=== PATIENT | female | born 1970 | race Caucasian/White ===

== ENCOUNTER 2018-10-12 12:29 | Emergency (ER) | payer OTHER, SELFPAY ==
[~2018-10-12 12:29] MED LIST: Iopamidol 300 61% 100 ML VIAL FS ONE
[2018-10-12 12:56] LABS: Clarity Clear (Clear); Glucose, Urine (Dipstick) Negative (Negative); Leukocyte Negative (Negative); Nitrite Negative (Negative); Protein, Urine (Dipstick) 30 mg/dL (Neg-Trace); Specific Gravity, Urine 1.015 (1.005-1.030)
[2018-10-12 12:57] LABS: Bacteria/HPF Rare-Few HPF (None Seen); Bilirubin Small (Negative); Blood, Urine Negative (Negative); RBC/HPF 0-3 HPF (0-3); Squamous Epithelial 0-3 HPF (0-3); Urobilinogen 0.2 mg/dL (0.2-1.0); WBC/HPF 0-3 HPF (0-3)
[2018-10-12 13:35] LABS: #Basophils 0.1 thou/uL (0.0-0.2); #Eosinphils 0.1 thou/uL (0.0-0.7); #Monocytes 0.3 thou/uL (0.11-0.59); #Neutrophils 3.4 thou/uL (1.40-6.50); %Basophils 1.2 % (0.0-1.0); %Eosinophils 2.5 % (0.0-10.0); %Lymphocytes 33.3 % (21.0-51.0); %Monocytes 5.1 % (0.0-10.0); Hemoglobin 12.6 g/dL (12.0-16.0); Mean Corpuscular HGB CONC 30.9 g/dL (32.0-36.0); Mean Corpuscular Hemoglobin 29.7 pg (27.0-31.0); Mean Corpuscular Volume 96.3 fL (78.0-98.0); Mean Platelet Volume 7.5 fL (7.4-10.4); Platelet Count 259 thou/uL (130-400); RBC Distribution Width 11.9 % (11.5-14.5); Red Blood Cell (RBC) Count 4.23 mill/uL (4.20-5.40); White Blood Cell (WBC) Count 5.8 thou/uL (4.8-10.8)
[2018-10-12 13:50] LABS: ALT (SGPT) 27 U/L (8-55); AST (SGOT) 23 U/L (5-34); Albumin 4.7 g/dL (3.5-5.0); Alkaline Phosphatase 91 U/L (40-150); Anion Gap 17 mmol/L (10-20); BUN (Urea Nitrogen) 15 mg/dL (7.0-18.7); Bilirubin, Total 0.2 mg/dL (0.2-1.2); Calc. Creatinine Clearance 0 mL/min (70-130); Calcium 10.6 mg/dL (7.8-10.44); Carbon Dioxide 32 mmol/L (22-29); Chloride 100 mmol/L (98-107); Estimated GFR-MDRD 76; Glucose 100 mg/dL (70-105); Protein, Total 7.7 g/dL (6.0-8.3); Sodium 145 mmol/L (136-145)
--- NOTE | 2018-10-12 14:39 | CT ---
CT abdomen with contrast CT pelvis with contrast: DATE: 10/12/2018 HISTORY: 48-year-old female with left lower quadrant abdominal pain. Recent UTI. COMPARISON: None available TECHNIQUE: IV injection of iodinated contrast media:Administered Oral contrast media:Not administered FINDINGS: There is a lap band around the cardia of the stomach, with catheter, plus injection port anterior to the left anterior abdominal wall in the subcutaneous fat. Moderate amount of stool throughout the colon. No convincing evidence of colonic diverticulitis. Redundant transverse colon. No small bowel d ilation. Tiny calculus at lower pole of right kidney. No evidence of pyelonephritis. No hydronephrosis. Normal left kidney, abdominal aorta, adrenals, spleen, pancreas, and liver. Decompres sed urinary bladder. Appendix is normal. No ascites or pneumoperitoneum. Lung bases are clear. No destructive osseous lesion. IMPRESSION: 1) mild nephrolithiasis consisting of a single tiny right renal calculus. 2) no acute findings 3) laparoscopic gastric band
== END 2018-10-12 14:53 | disposition home or self-care (01) ==
LOC: BURERS 12:29
DX: R10.32 Left lower quadrant pain (principal)
CPT/HCPCS: 36415; 74177; 80053; 81003; 81015; 85025; Q9967

== ENCOUNTER 2018-11-12 20:16 | Emergency (ER) | payer SELFPAY ==
--- NOTE | 2018-11-12 22:29 | RAD ---
RIGHT ANKLE THREE VIEWS: 11/12/2018 FINDINGS: A nondisplaced fracture of the lateral malleolus is present. The distal tibia appears intact. The a rticular surfaces appear normal. IMPRESSION: Undisplaced fracture of the lateral malleolus. CODE T POS: HOME
== END 2018-11-12 21:00 | disposition home or self-care (01) ==
LOC: BURERS 20:16
DX: S82.831A Other fracture of upper and lower end of right fibula, initial encounter for closed fracture (principal); F41.9 Anxiety disorder, unspecified; F32.9 Major depressive disorder, single episode, unspecified; F90.9 Attention-deficit hyperactivity disorder, unspecified type; E03.9 Hypothyroidism, unspecified; Z79.899 Other long term (current) drug therapy; Z79.891 Long term (current) use of opiate analgesic; X50.1XXA Overexertion from prolonged static or awkward postures, initial encounter

== ENCOUNTER 2019-04-01 12:05 | Emergency (ER) | payer SELFPAY ==
[2019-04-01] MEDS ORDERED: Ketorolac Tromethamine 30 MG/ML VIAL ONE (12:44)
[2019-04-01 12:48] LABS: #Basophils 0.1 thou/uL (0.0-0.2); #Monocytes 0.9 thou/uL (0.11-0.59); #Neutrophils 9.6 thou/uL (1.40-6.50); %Basophils 0.6 % (0.0-1.0); %Eosinophils 0.3 % (0.0-10.0); %Lymphocytes 8.2 % (21.0-51.0); %Monocytes 7.7 % (0.0-10.0); %Neutrophils 83.2 % (42.0-75.0); Hemoglobin 11.7 g/dL (12.0-16.0); Mean Corpuscular HGB CONC 32.6 g/dL (32.0-36.0); Mean Corpuscular Volume 92.1 fL (78.0-98.0); Mean Platelet Volume 8.5 fL (7.4-10.4); Platelet Count 260 thou/uL (130-400); RBC Distribution Width 11.8 % (11.5-14.5); Red Blood Cell (RBC) Count 3.88 mill/uL (4.20-5.40); White Blood Cell (WBC) Count 11.5 thou/uL (4.8-10.8)
[2019-04-01 12:57] LABS: BHCG - Serum POSITIVE (NEGATIVE); Pregs Control Background? CLEAR/WHITE (CLR/WHITE); Pregs Control Bar Appear? YES (CONTROL BAR)
[2019-04-01 13:04] LABS: ALT (SGPT) 73 U/L (8-55); AST (SGOT) 98 U/L (5-34); Albumin 3.7 g/dL (3.5-5.0); Alkaline Phosphatase 169 U/L (40-110); Anion Gap 15 mmol/L (10-20); BUN (Urea Nitrogen) 9 mg/dL (9.8-20.1); Bilirubin, Total 0.3 mg/dL (0.2-1.2); Calc. Creatinine Clearance 0 mL/min (70-130); Calcium 9.2 mg/dL (7.8-10.44); Carbon Dioxide 27 mmol/L (22-29); Chloride 97 mmol/L (98-107); Estimated GFR-MDRD 81; Globulin 3.5 g/dL (2.4-3.5); Glucose 102 mg/dL (70-105); Lipase 6 U/L (8-78); Potassium 3.9 mmol/L (3.5-5.1); Protein, Total 7.2 g/dL (6.0-8.3); Sodium 135 mmol/L (136-145)
== END 2019-04-01 13:54 | disposition home or self-care (01) ==
LOC: BURERS 12:05
DX: K29.71 Gastritis, unspecified, with bleeding (principal); J11.1 Influenza due to unidentified influenza virus with other respiratory manifestations; F41.9 Anxiety disorder, unspecified; F32.9 Major depressive disorder, single episode, unspecified; F90.9 Attention-deficit hyperactivity disorder, unspecified type; E03.9 Hypothyroidism, unspecified; Z79.891 Long term (current) use of opiate analgesic; Z79.899 Other long term (current) drug therapy
CPT/HCPCS: 80053; 83690; 84702; 84703; 85025; J1885

== ENCOUNTER 2019-08-06 22:03 | Emergency (ER) | payer SELFPAY ==
[2019-08-06] MEDS ORDERED: Adacel (T-DAP) 0.5 ML SYRINGE ONE (22:28)
[2019-08-06] MEDS ORDERED: Ciprofloxacin 500 MG TAB ONE (22:28)
--- NOTE | 2019-08-06 22:58 | RAD ---
LEFT FOOT THREE VIEWS: 08/06/19 A marker is placed at the site of interest in the distal forefoot, plantar surface. No opaque foreign body was visible. The bones currently appear normal. IMPRESSION: No significant findings. POS: HOME
== END 2019-08-06 22:50 | disposition home or self-care (01) ==
LOC: BURERS 22:03
DX: S91.332A Puncture wound without foreign body, left foot, initial encounter (principal); E03.9 Hypothyroidism, unspecified; F41.9 Anxiety disorder, unspecified; F32.9 Major depressive disorder, single episode, unspecified; F90.9 Attention-deficit hyperactivity disorder, unspecified type; M79.7 Fibromyalgia; Z79.899 Other long term (current) drug therapy; Z23 Encounter for immunization; W45.0XXA Nail entering through skin, initial encounter
CPT/HCPCS: 90715

== ENCOUNTER 2021-01-08 04:34 | Emergency (ER) | payer SELFPAY ==
[2021-01-08] MEDS ORDERED: cefTRIAXone\\ROCEPHIN 1 GM VIAL ONE (04:50)
[2021-01-08] MEDS ORDERED: Lidocaine 1% PF 5 ML VIAL ONE (04:51)
== END 2021-01-08 05:15 | disposition home or self-care (01) ==
LOC: BURERS 04:34
DX: K04.7 Periapical abscess without sinus (principal); E03.9 Hypothyroidism, unspecified; Z79.899 Other long term (current) drug therapy
CPT/HCPCS: 96372; 99282; J0696

== ENCOUNTER 2021-10-05 19:17 | Emergency (ER) | payer SELFPAY ==
[2021-10-05] MEDS ORDERED: Ketorolac Tromethamine 60 MG/2 ML VIAL ONE (19:39)
[2021-10-05 19:57] LABS: Bilirubin Negative (Negative); Blood, Urine Moderate (Negative); Clarity Cloudy (Clear); Glucose, Urine (Dipstick) Negative (Negative); Ketone, Urine Negative (Negative); Leukocyte Large (Negative); Nitrite Positive (Negative); Protein, Urine (Dipstick) > or equal to 300 mg/dL (Neg-Trace); pH, Urine 5.5 (5.0-9.0)
[2021-10-05 20:03] LABS: Bacteria/HPF 4+ HPF (None Seen); Mucous/LPF 1+ LPF (<2+); Squamous Epithelial 0-3 HPF (0-3); WBC/HPF Greater Than 50 HPF (0-3)
[2021-10-05] MEDS ORDERED: Sulfameth/Trimethoprim DS 800-160mg TAB ONE (20:20)
[2021-10-05] MEDS ORDERED: Acetaminophen 500 MG TAB ONE (20:25)
== END 2021-10-05 22:11 | disposition home or self-care (01) ==
LOC: BURERS 19:17
DX: N10 Acute pyelonephritis (principal); E03.9 Hypothyroidism, unspecified; Z79.890 Hormone replacement therapy; Z79.899 Other long term (current) drug therapy
CPT/HCPCS: 81003; 81015; 87077; 87086; 87186; 87804; 96372; 99283; J1885

== ENCOUNTER 2021-10-06 20:51 | Observation (INO) | payer SELFPAY ==
[2021-10-06 21:45] LABS: #Basophils 0.1 thou/uL (0.0-0.2); #Lymphocytes 0.6 thou/uL (1.20-3.40); #Monocytes 0.9 thou/uL (0.11-0.59); #Neutrophils 17.3 thou/uL (1.40-6.50); %Basophils 0.4 % (0.0-1.0); %Eosinophils 0.1 % (0.0-10.0); %Lymphocytes 3.3 % (21.0-51.0); %Monocytes 4.5 % (0.0-10.0); %Neutrophils 91.7 % (42.0-75.0); Hemoglobin 11.4 g/dL (12.0-16.0); Mean Corpuscular HGB CONC 34.4 g/dL (32.0-36.0); Mean Corpuscular Hemoglobin 31.2 pg (27.0-31.0); Mean Corpuscular Volume 90.8 fL (78.0-98.0); Platelet Count 235 thou/uL (130-400); RBC Distribution Width 11.8 % (11.5-14.5); Red Blood Cell (RBC) Count 3.64 mill/uL (4.20-5.40); White Blood Cell (WBC) Count 18.8 thou/uL (4.8-10.8)
[2021-10-06] MEDS ORDERED: Ondansetron PF 4 MG/2 ML Vial ONE (21:55)
[2021-10-06] MEDS ORDERED: Morphine 4 MG/ML VIAL ONE (21:55)
[2021-10-06] MEDS ORDERED: Acetaminophen 325 MG TAB ONE (21:55)
[2021-10-06] MEDS ORDERED: cefTRIAXone\\ROCEPHIN 2 GM VIAL ONE (21:56)
[2021-10-06] MEDS ORDERED: Sodium Chloride 0.9% 100 ML ONE (21:58)
[2021-10-06 22:00] LABS: ALT (SGPT) 44 U/L (8-55); AST (SGOT) 55 U/L (5-34); Albumin 3.9 g/dL (3.5-5.0); Alkaline Phosphatase 99 U/L (40-110); Anion Gap 14 mmol/L (10-20); BUN (Urea Nitrogen) 10 mg/dL (9.8-20.1); Bilirubin, Total 0.5 mg/dL (0.2-1.2); Calc. Creatinine Clearance 0 mL/min (70-130); Calcium 8.7 mg/dL (7.8-10.44); Carbon Dioxide 26 mmol/L (22-29); Chloride 101 mmol/L (98-107); Glucose 122 mg/dL (70-105); Potassium 3.7 mmol/L (3.5-5.1); Protein, Total 6.9 g/dL (6.0-8.3); Sodium 137 mmol/L (136-145)
[2021-10-06 23:54] VITALS: BMI 25.4
[2021-10-07 00:15] LABS: SARS-CoV-2 NAA Rapid Test Not Detected (NotDetected)
[2021-10-07] MEDS ORDERED: Morphine 4 MG/ML VIAL SLOW IVP PRN (01:18)
[2021-10-07] MEDS ORDERED: Ondansetron ODT 4 MG TAB SL PRN (01:30)
[2021-10-07] MEDS ORDERED: Acetaminophen 325 MG TAB PO PRN (01:30)
[2021-10-07] MEDS ORDERED: Ondansetron PF 4 MG/2 ML Vial IVP PRN (01:30)
[2021-10-07 02:54] LABS: Bilirubin Negative (Negative); Blood, Urine Trace (Negative); Clarity Clear (Clear); Glucose, Urine (Dipstick) Negative (Negative); Ketone, Urine Negative (Negative); Leukocyte Trace (Negative); Nitrite Negative (Negative); Protein, Urine (Dipstick) 100 mg/dL (Neg-Trace); Specific Gravity, Urine 1.025 (1.005-1.030); Urobilinogen 0.2 mg/dL (Less than 2); pH, Urine 5.5 (5.0-9.0)
[2021-10-07 02:59] LABS: Bacteria/HPF 1+ HPF (None Seen); Squamous Epithelial 0-3 HPF (0-3); WBC/HPF 0-3 HPF (0-3)
[2021-10-07 03:01] LABS: Urine Culture Reflex Yes Yes
[2021-10-07] MEDS ORDERED: HYDROcodone/Acetaminophen 10/325 mg Tablet PO PRN (06:16)
[2021-10-07] MEDS: Sodium Chloride 0.9% 1,000 ML IV SCH ×2 (08:02)
[2021-10-07] MEDS: Bupropion 150 MG SR TAB PO SCH (08:03)
[2021-10-07] MEDS: Levothyroxine Sodium 100 MCG TAB PO SCH (08:03)
[2021-10-07] MEDS: Ibuprofen 800 MG TAB PO PRN (10:58)
[2021-10-07] MEDS ORDERED: Ondansetron ODT 4 MG TAB PO PRN (15:12)
[2021-10-07] MEDS: cefTRIAXone\\ROCEPHIN 2 GM in Sodium Chloride 0.9% 100 ML IVPB SCH (22:32)
[2021-10-07] MEDS: HYDROcodone/Acetaminophen 10/325 mg Tablet PO PRN (22:38)
[2021-10-08] MEDS: Ibuprofen 800 MG TAB PO PRN ×2 (01:58→23:45)
[2021-10-08 05:17] LABS: Anion Gap 16 mmol/L (10-20); BUN (Urea Nitrogen) 9 mg/dL (9.8-20.1); Calc. Creatinine Clearance 118 mL/min (70-130); Calcium 8.5 mg/dL (7.8-10.44); Carbon Dioxide 21 mmol/L (22-29); Chloride 107 mmol/L (98-107); Glucose 74 mg/dL (70-105); Potassium 3.6 mmol/L (3.5-5.1); Sodium 140 mmol/L (136-145)
[2021-10-08 05:32] LABS: Hemoglobin 10.9 g/dL (12.0-16.0); Mean Corpuscular HGB CONC 34.5 g/dL (32.0-36.0); Platelet Count 213 thou/uL (130-400); RBC Distribution Width 11.7 % (11.5-14.5); Red Blood Cell (RBC) Count 3.51 mill/uL (4.20-5.40)
[2021-10-08 05:41] LABS: Band 1 % (5-11); Lymphocytes 7 % (21-51); MDiff Complete? YES; Monocytes 4 % (0-10); Neutrophil 88 % (42-75); Platelet Morphology Comment Appears Adequate; RBC Morphology Normal
[2021-10-08] MEDS: Levothyroxine Sodium 100 MCG TAB PO SCH (08:30)
[2021-10-08] MEDS: Bupropion 150 MG SR TAB PO SCH (08:31)
[2021-10-08] MEDS: cefTRIAXone\\ROCEPHIN 2 GM in Sodium Chloride 0.9% 100 ML IVPB SCH (21:11)
[2021-10-08] MEDS: HYDROcodone/Acetaminophen 10/325 mg Tablet PO PRN (21:59)
[2021-10-09] MEDS ORDERED: Metoclopramide HCl 10 MG/2 ML VIAL ONE (05:44)
[2021-10-09 06:26] VITALS: BP 134/73; TEMP 96.7
[2021-10-09] MEDS: Bupropion 150 MG SR TAB PO SCH (07:49)
[2021-10-09] MEDS: Levothyroxine Sodium 100 MCG TAB PO SCH (07:49)
[2021-10-09 07:54] LABS: #Basophils 0.1 thou/uL (0.0-0.2); #Eosinphils 0.2 thou/uL (0.0-0.7); #Lymphocytes 1.8 thou/uL (1.20-3.40); #Monocytes 0.6 thou/uL (0.11-0.59); #Neutrophils 6.3 thou/uL (1.40-6.50); %Basophils 0.6 % (0.0-1.0); %Eosinophils 1.7 % (0.0-10.0); %Monocytes 7.1 % (0.0-10.0); %Neutrophils 70.6 % (42.0-75.0); Hemoglobin 10.6 g/dL (12.0-16.0); Mean Corpuscular HGB CONC 33.6 g/dL (32.0-36.0); Mean Corpuscular Hemoglobin 30.5 pg (27.0-31.0); Mean Corpuscular Volume 90.8 fL (78.0-98.0); Mean Platelet Volume 8.5 fL (7.4-10.4); Platelet Count 233 thou/uL (130-400); RBC Distribution Width 11.9 % (11.5-14.5); Red Blood Cell (RBC) Count 3.46 mill/uL (4.20-5.40); White Blood Cell (WBC) Count 8.9 thou/uL (4.8-10.8)
[2021-10-09 08:28] LABS: Anion Gap 17 mmol/L (10-20); BUN (Urea Nitrogen) 7 mg/dL (9.8-20.1); Calc. Creatinine Clearance 118 mL/min (70-130); Calcium 8.2 mg/dL (7.8-10.44); Carbon Dioxide 24 mmol/L (22-29); Chloride 107 mmol/L (98-107); Glucose 82 mg/dL (70-105); Potassium 3.6 mmol/L (3.5-5.1); Sodium 144 mmol/L (136-145)
== END 2021-10-09 09:12 | disposition home or self-care (01) ==
LOC: BURERS 20:51 → BURMED 22:36 → INTOOBSV 22:36
PROVIDERS: ADMIT Family Medicine; ATTEND Family Medicine
DX: N10 Acute pyelonephritis (principal); A41.51 Sepsis due to Escherichia coli [E. coli]; M79.7 Fibromyalgia; G89.4 Chronic pain syndrome; E03.9 Hypothyroidism, unspecified; Z79.890 Hormone replacement therapy; Z79.899 Other long term (current) drug therapy; Z20.822 Contact with and (suspected) exposure to COVID-19
CPT/HCPCS: 36415; 71045; 80048; 80053; 81001; 83605; 85025; 87040; 87086; 96374; 96375; 96376; G0378; J0696; J1956; J2270; J2405; J2765; J3490; J7050; Q0162; U0002

== ENCOUNTER 2022-04-07 15:53 | Emergency (ER) | payer SELFPAY ==
[2022-04-07 16:35] LABS: #Basophils 0.1 thou/uL (0.0-0.2); #Eosinphils 0.2 thou/uL (0.0-0.7); #Monocytes 0.3 thou/uL (0.11-0.59); #Neutrophils 3.9 thou/uL (1.40-6.50); %Basophils 1.3 % (0.0-1.0); %Eosinophils 2.7 % (0.0-10.0); %Lymphocytes 31.2 % (21.0-51.0); %Monocytes 3.8 % (0.0-10.0); Hemoglobin 13.3 g/dL (12.0-16.0); Mean Corpuscular HGB CONC 33.2 g/dL (32.0-36.0); Mean Corpuscular Hemoglobin 30.2 pg (27.0-31.0); Mean Platelet Volume 9.3 fL (7.4-10.4); Platelet Count 318 10x3/uL (130-400); RBC Distribution Width 11.4 % (11.5-14.5); Red Blood Cell (RBC) Count 4.39 mill/uL (4.20-5.40); White Blood Cell (WBC) Count 6.4 10x3/uL (4.8-10.8)
[2022-04-07 16:53] LABS: ALT (SGPT) 15 U/L (8-55); AST (SGOT) 16 U/L (5-34); Albumin 4.6 g/dL (3.5-5.0); Alkaline Phosphatase 80 U/L (40-110); Anion Gap 13 mmol/L (10-20); BUN (Urea Nitrogen) 16 mg/dL (9.8-20.1); Bilirubin, Total 0.4 mg/dL (0.2-1.2); CK (CPK) 69 U/L (29-168); Calc. Creatinine Clearance 0 mL/min (70-130); Carbon Dioxide 25 mmol/L (22-29); Chloride 105 mmol/L (98-107); Estimated GFR 47; Glucose 157 mg/dL (70-105); Lipase 17 U/L (8-78); Potassium 3.6 mmol/L (3.5-5.1); Protein, Total 7.6 g/dL (6.0-8.3); Sodium 139 mmol/L (136-145)
[2022-04-07 16:53] LABS: Bilirubin Moderate (Negative); Blood, Urine Negative (Negative); Clarity Slightly Cloudy (Clear); Glucose, Urine (Dipstick) Negative (Negative); Ketone, Urine 15 mg/dL (Negative); Leukocyte Small (Negative); Nitrite Negative (Negative); Protein, Urine (Dipstick) Negative (Neg-Trace); pH, Urine 5.5 (5.0-9.0)
[2022-04-07 16:56] LABS: Specific Gravity, Urine 1.025 (1.002-1.036)
[2022-04-07 17:02] LABS: Calcium Oxalate Crystals 2+ HPF (None Seen)
[2022-04-07 17:04] LABS: Bacteria/HPF Rare-Few HPF (None Seen); RBC/HPF None Seen HPF (0-3); WBC/HPF 0-3 HPF (0-3)
[2022-04-07 17:26] LABS: SARS-CoV-2 NAA Rapid Test Not Detected (NotDetected)
== END 2022-04-07 17:11 | disposition home or self-care (01) ==
LOC: BURERS 15:53
DX: N39.0 Urinary tract infection, site not specified (principal); R00.2 Palpitations; Z20.822 Contact with and (suspected) exposure to COVID-19
CPT/HCPCS: 71045; 80053; 81003; 81015; 82550; 83690; 84443; 84484; 85025; 85379; 87086; 93005